=== PATIENT | female | born 1985 | race Caucasian/White ===

== ENCOUNTER 2017-10-12 14:10 | Emergency (ER) | payer OTHER ==
[2017-10-12 14:55] VITALS: BP 117/83
[2017-10-12] MEDS ORDERED: Tetan/Diph/Pertus SYR(Tdap)* 0.5 ML SYR(BOOSTRIX) use SYR IM ONE (15:02)
--- NOTE | 2017-10-12 15:13 | UC ---
Laceration HPI - HPI Summary HPI Summary: Pt presents with c/o laceration to right 5th finger. Pt states she was washing dishes and cut finger on broken glass. - History Of Current Complaint Chief Complaint: UCLaceration Stated Complaint: RT PINKY FINGER LAC Time Seen by Provider: 10/12/17 14:59 Hx Obtained From: Patient Hx Last Menstrual Period: 09/21/17 Laceration Location: Finger Mechanism Of Injury: Sharp Trauma Onset/Duration: Sudden Onset Severity: Mild Pain Intensity: 4 Related History: Dominant Hand Right - Allergies/Home Medications Allergies/Adverse Reactions: Allergies Allergy/AdvReac Type Severity Reaction Status Date / Time No Known Allergies Allergy Verified 10/12/17 14:51 Home Medications: Home Medications ALPRAZolam TAB* [Xanax TAB*] 0.5 mg PO Q12HR PRN 10/12/17 [History Confirmed 02/19] Fluoxetine HCl [Prozac] 40 mg PO DAILY 10/12/17 [History Confirmed 10/12/17] Pantoprazole TAB (NF) [Protonix TAB (NF)] 40 mg PO BID 10/12/17 [History Confirmed 10/12/17] PMH/Surg Hx/FS Hx/Imm Hx Previously Healthy: Yes - Surgical History Surgical History: Yes Surgery Procedure, Year, and Place: LAP BUD. LEEP. LUMPECTOMY LEFT BREAST - Family History Known Family History: Positive: Cardiac Disease - Social History Occupation: Employed Full-time Lives: With Family Alcohol Use: Daily Substance Use Type: None Smoking Status (MU): Light Every Day Tobacco Smoker Amount Used/How Often: 4 CIG A DAY Have You Smoked in the Last Year: Yes Household Exposure Type: Cigarettes - Immunization History Most Recent Tetanus Shot: UNK Review of Systems Constitutional: Negative Skin: Other - laceration to right 5th finger Eyes: Negative ENT: Negative Respiratory: Negative Cardiovascular: Negative Gastrointestinal: Negative Genitourinary: Negative Motor: Negative Neurovascular: Negative Musculoskeletal: Myalgia - right 5th finger Neurological: Negative Psychological: Negative Is Patient Immunocompromised?: No All Other Systems Reviewed And Are Negative: Yes Physical Exam Triage Information Reviewed: Yes Appearance: Well-Appearing Vital Signs: Initial Vital Signs Temp 97.8 F 10/12/17 14:47 Pulse 103 10/12/17 14:47 Resp 16 10/12/17 14:47 BP 117/83 10/12/17 14:47 Pulse Ox 100 10/12/17 14:47 Vital Signs Reviewed: Yes Eye Exam: Normal ENT: Positive: Hearing grossly normal Neck exam: Normal Respiratory: Positive: No respiratory distress Musculoskeletal Exam: Normal Musculoskeletal: Positive: Strength Intact, ROM Intact Neurological Exam: Normal Psychological Exam: Normal Skin Exam: Other - laceration right 5th finger Laceration Repair - Laceration Repair 1 Description: Linear Laceration Size After Repair: Length (cm) - 1, Width (mm) - 2 Modified For Repair: No Irrigation With Pressure Irrigation Device: Yes Closure Material: Skin Adhesive, SteriStrips Closure Method: Single Layer Suture Of: Skin Laceration Course/Dx - Differential Dx - Laceration/Wound Differental Diagnoses: Laceration Provider Diagnoses: laceration repair right 5th finger Discharge - Sign-Out/Discharge Documenting (check all that apply): Patient Departure - Discharge Plan Condition: Stable Disposition: HOME Patient Education Materials: Finger Laceration (ED), Skin Adhesive Care (ED) Referrals: Demian MAURICE,Akua Shafer [Primary Care Provider] - If Needed - Billing Disposition and Condition Condition: STABLE Disposition: Home
== END 2017-10-12 15:29 | disposition home or self-care (01) ==
LOC: UCCORT 14:10
DX: S61.216A Laceration without foreign body of right little finger without damage to nail, initial encounter (principal); W25.XXXA Contact with sharp glass, initial encounter; Y93.G1 Activity, food preparation and clean up; Y92.9 Unspecified place or not applicable; Z23 Encounter for immunization; F17.210 Nicotine dependence, cigarettes, uncomplicated
CPT/HCPCS: 12001; 90471; 90715; 99211; G0463

== ENCOUNTER 2017-11-30 16:49 | Emergency (ER) | payer MEDICAID, OTHER ==
[2017-11-30 17:37] VITALS: BP 121/68
[2017-11-30] MEDS ORDERED: Dexamethasone IV* 4 MG/ML 1 ML (4 MG) IM ONE (18:12)
[2017-11-30] MEDS ORDERED: Ketorolac INJ* 30 MG/ML 1 ML VIAL IM ONE (18:12)
--- NOTE | 2017-11-30 18:58 | UC ---
Hip/Pelvis Pain - HPI Summary HPI Summary: 32-year-old female with history of factor V Leiden presents with severe, sudden onset atraumatic right-sided hip starting this morning approximately 12 hours prior with pain located in the inside of the right hip, worse with hip flexion and leg abduction, no relieving factors. Patient able to limp and bear weight on the right leg. Denies any recent fevers or any traumatic injuries. Also denies any prior episodes. No remitting factors. Describes pain as sharp, constant. - History Of Current Complaint Chief Complaint: UCLowerExtremity Stated Complaint: RT SIDE HIP PAIN Time Seen by Provider: 11/30/17 17:41 Hx Last Menstrual Period: ~11/16/17 Pain Intensity: 4 - Allergies/Home Medications Allergies/Adverse Reactions: Allergies Allergy/AdvReac Type Severity Reaction Status Date / Time No Known Allergies Allergy Verified 11/30/17 17:32 PMH/Surg Hx/FS Hx/Imm Hx - Additional Past Medical History Additional PMH: Factor V Leiden, no history of blood clots in the past - Surgical History Surgical History: Yes Surgery Procedure, Year, and Place: LAP BUD. LEEP. LUMPECTOMY LEFT BREAST - Family History Known Family History: Positive: Cardiac Disease - Social History Alcohol Use: Daily Substance Use Type: None Smoking Status (MU): Light Every Day Tobacco Smoker Amount Used/How Often: 1/5 PPD Have You Smoked in the Last Year: Yes When Did the Patient Quit Smoking/Using Tobacco: Since Age 10 Household Exposure Type: Cigarettes - Immunization History Most Recent Tetanus Shot: 10/12/17 Review of Systems Musculoskeletal: Other: - Right-sided hip pain All Other Systems Reviewed And Are Negative: Yes Physical Exam - Summary Physical Exam Summary: Gen: alert, in no acute distress HEENT: EOMI, normocephalic, atruamatic Neck: supple, no masses CV: Normal s1 s2, no murmurs Resp: normal breath sounds b/l GI: no tenderness, no masses Musculoskeletal: Limited range of motion of the right hip secondary to pain. Normal distal neurovascular status. No overlying skin changes. No swelling. No calf tenderness. Negative Homans sign. Normal distal pulses of the leg at the posterior tibial and pedal areas bilaterally. Skin: no rash Lymph: no lymphadenopathy Psych: appropriate affect, oriented Triage Information Reviewed: Yes Vital Signs: Initial Vital Signs Temp 36.7 C 11/30/17 17:30 Pulse 84 11/30/17 17:30 Resp 18 11/30/17 17:30 BP 121/68 11/30/17 17:30 Pulse Ox 100 11/30/17 17:30 Diagnostics - Radiology hip x-ray Xray Interpretation: No Acute Changes Radiology Interpretation Completed By: ED Physician Hip Injury Course/Dx - Course Course Of Treatment: I had a conversation with the patient explaining that the possibility of avascular necrosis of the hip given her history of factor V Leiden is a rare but possible etiology of her pain. I explained that this could be a potentially dangerous diagnosis and that I recommended that she go to the emergency department for further evaluation. However, the patient refuses to go to the emergency department tonight against my advice and wishes to be seen by her doctor tomorrow. I explained the risks of delaying diagnosis and care including further damage to her hip and permanent disability. patient understands these risks, and wishes to see her doctor tomorrow nonetheless. Agrees and understands discharge instructions. - Differential Dx/Diagnosis Provider Diagnoses: RIGHT HIP PAIN Discharge - Sign-Out/Discharge Documenting (check all that apply): Patient Departure All imaging exams completed and their final reports reviewed: Yes - Discharge Plan Condition: Guarded Disposition: AGAINST MEDICAL ADVICE Patient Education Materials: Hip Pain (ED) Referrals: Demian MAURICE,Akua Shafer [Primary Care Provider] - Additional Instructions: PLEASE SEE YOUR DOCTOR SOON POSSIBLE FOR FURTHER EVALUATION PLEASE REPORT TO THE ER FOR ANY WORSENING OR CONCERNING SYMPTOMS - Billing Disposition and Condition Condition: GUARDED Disposition: Against Medical Advice
--- NOTE | 2017-12-01 07:25 | RAD ---
INDICATION: Right hip pain COMPARISON: None TECHNIQUE: An AP view of the pelvis and AP views of the hip in neutral and abducted position were obtained FINDINGS: Bones: There are no acute bony findings. Joint spaces: The hips articulate normally. The joint spaces are preserved. SI joints/symphysis: The SI joints and symphysis are intact. Other: None IMPRESSION: NEGATIVE EXAMINATION. R1
== END 2017-11-30 19:07 | disposition left against medical advice (07) ==
LOC: UCCORT 16:49
DX: M25.551 Pain in right hip (principal); F17.210 Nicotine dependence, cigarettes, uncomplicated; D68.51 Activated protein C resistance
CPT/HCPCS: 96372; 99211; G0463; J1100; J1885